=== PATIENT | female | born 1935 | race African-American/Black ===

== ENCOUNTER 2017-01-10 11:53 | Observation (INO) | payer MEDICARE, BC ==
--- NOTE | ~2017-01-10 | DS ---
Discharge Summary [facility] [address] [place]. [address] NAME: MEET DURON : 37 STATUS : DIS Bibiana PAT#: [id number] AGE: 81 ADM/REG DATE : 01/10/17 MR#: [id number] REPORT SERV DATE: 01/13/17 DICTATED BY: JAKE LOREDO DATE: 01/12/17 REPORT STATUS : Draft TRANSCRIBED BY: MODRobert DATE: 01/12/17 ADMISSION DATE: 01/10/2017 DISCHARGE DATE: 01/12/2017 REASON FOR ADMISSION: This is an 81-year-old female with a history of degenerative joint disease and osteoarthritis who had been admitted with intractable right hip and knee pain and generalized debility with a chronic history of chronic progressive multiple sclerosis. DISCHARGE DIAGNOSES: 1. Right hip and right knee pain secondary to degenerative joint disease. 2. Debility. 3. Chronic multiple sclerosis. 4. Hypertension. 5. Anxiety and depression. 6. Prediabetic with A1c of 5.8. 7. Nausea, possible gastroparesis. HOSPITAL COURSE: Right hip and right knee pain. On admission, the patient had reportedly had intractable right hip and knee pain at home and was bedbound due to her MS and joint pain, and family was requesting that we admit her and have PT see her and to see if we can get her in for inpatient rehab. She was seen by Physical Therapy who had recommended assisted or inpatient rehab and was also seen by Orthopedic Surgery. She had had an x-ray of right hip and right knee. The hip x-ray had stated moderate of degenerative changes of the right hip, and the right knee x-ray had suggested severe degenerative changes of the right knee with narrowing of both medial and lateral joint compartments. She was seen by Dr. Dusty Patterson from Ortho Surgery who had stated that she had right knee osteoarthritis and right hip osteoarthritis pain and both felt that she would be treated as an outpatient, no need for acute surgical intervention, and would follow up with her as an outpatient. Case Management attempted inpatient rehab placement; however, both [facility] and [facility] felt that the patient was at baseline function level and that her debility was chronically related not to an acute process that was amenable to inpatient rehab. Therefore, she was denied by both, and since she did not have an inpatient admitting diagnosis, the alternate plan was to set her up with home health, hospital bed, bedside commode, and home health PT and TECHNOLOGY RECRUITER visits. I should also mention that the patient had complaints of nausea and fullness that were consistent with possible gastroparesis and she does have a history of prediabetes and MS, I started her on Reglan while she was here at the hospital. She showed improvement with symptoms from both Reglan and Carafate, which I had started her on. She will be continued with that at discharge. DISCHARGE CONDITION: Stable. DISCHARGE MEDICATIONS: 1. Zocor 20 mg p.o. at bedtime. 2. Tenormin 100 mg p.o. daily. 3. Neurontin 600 mg p.o. q.a.m. and q.p.m. and 900 mg at bedtime. 4. Lexapro 20 mg p.o. daily. Discharge Summary [address] [address] NAME: MEET DURON : 37 STATUS : DIS Bibiana PAT#: [id number] AGE: 81 ADM/REG DATE : 01/10/17 MR#: [id number] REPORT SERV DATE: 01/13/17 DICTATED BY: JAKE LOREDO DATE: 01/12/17 REPORT STATUS : Draft TRANSCRIBED BY: JAQUAN DATE: 01/12/17 5. Xanax 0.5 mg p.o. daily. 6. Wellbutrin 150 mg p.o. daily. 7. Caltrate 600 plus D one tablet daily. 8. Multivitamin one tablet daily. 9. Biotin 5 mg p.o. daily. 10.Tylenol p.r.n. 11.Benadryl p.r.n. 12.Nanci p.r.n. 13.Reglan 5 mg p.o. a.c. and bedtime. 14.Carafate 1 g a.c. and bedtime. 15.Hydrocodone 5/325 one to two tabs p.o. q.4 hours p.r.n. DISCHARGE PLAN: The patient is discharged home with hospital bed, home health services for RN, PT, and TECHNOLOGY RECRUITER visits, and bedside commode. She will follow up with her primary care, Dr. Blu Price, in one to two weeks. TDR/MODL Jake Loredo APN / [id number] CC: Ruth Shipley M.D.
--- NOTE | ~2017-01-10 | CN ---
Consultation Report [facility] [address] [place]. [address] NAME: MEET DURON : 37 STATUS : ADM iBbiana PAT#: [id number] AGE: 81 ADM/REG DATE : 01/10/17 MR#: [id number] REPORT SERV DATE: 01/11/17 DICTATED BY: DUSTY BROWER DATE: 01/11/17 REPORT STATUS : Draft TRANSCRIBED BY: MODL DATE: 01/11/17 CONSULTATION DATE OF CONSULTATION: 01/11/2017 CHIEF COMPLAINT: Right hip pain and right knee pain. HISTORY: The patient is an 81-year-old female with a longstanding history of arthritis. She has had a previous left total hip and a left total knee in the past. She says both of those are about 20 years old. She has also had a revision total knee on the left side. She has complained of right hip pain recently as well as right knee pain. She said they are both better today, but the right hip was bad enough that she came to the emergency department. She has multiple sclerosis as well and her strength is decreased due to that. She said she has had injections in her knees previously and knows she has arthritis in her right knee and hip. PAST MEDICAL HISTORY: Hypertension, multiple sclerosis, gout, constipation, anxiety, depression, neuropathy, hyperlipidemia, bladder cancer, irritable bowel, and diabetes type 2. PAST SURGICAL HISTORY: Left total knee x2, last one was in 2006; left total hip which she says was about 20 years ago; hysterectomy; appendectomy; cholecystectomy; and colonoscopy. SOCIAL HISTORY: She lives with her daughter. She is retired. Does not smoke or drink. FAMILY HISTORY: Noncontributory. HOME MEDICATIONS: Zocor, atenolol, Neurontin, Tylenol, Biotin, calcium, Benadryl, Lexapro, and Xanax. PHYSICAL EXAMINATION: GENERAL: Well-developed, well-nourished female, in no acute distress. HEENT: Normocephalic, atraumatic. RESPIRATORY: Nonlabored respirations. Equal chest rise bilaterally. EXTREMITIES: She has mild swelling in her lower extremities. No cyanosis or clubbing. MUSCULOSKELETAL: Her right knee has swelling, she is tender to palpation. Range of motion causes pain. She has significant crepitus with range of motion. Tender to palpation in medial and lateral joint lines. Right hip causes some mild pain with log roll. Flexion causes pain. No tenderness to palpation of her right hip. Her left knee, has an incision over her left knee. She is tender to palpation around medial and lateral joint lines. NEURO: Alert and oriented x3. PSYCH: Appropriate mood and affect. SKIN: No rashes or lesions. Incisions over the left hip and left knee. Consultation Report [facility] [address] [place]. [address] NAME: MEET DURON : 37 STATUS : ADM Bibiana PAT#: [id number] AGE: 81 ADM/REG DATE : 01/10/17 MR#: [id number] REPORT SERV DATE: 01/11/17 DICTATED BY: DUSTY BROWER DATE: 01/11/17 REPORT STATUS : Draft TRANSCRIBED BY: JAQUAN DATE: 01/11/17 IMAGING: X-ray, AP pelvis, she has a left total hip arthroplasty, good position, no evidence of loosening or failure. The right hip shows degenerative arthritis. The right knee x-rays show significant tricompartmental arthritis, bone on bone in every compartment. ASSESSMENT AND PLAN: Right knee osteoarthritis, right hip osteoarthritis with pain in both. She says that these are better today. Can be treated as an outpatient. There is no need for acute surgical intervention. I am not sure how much even injections would help her right knee due to the significance of the arthritis. I think they will give her very short relief. We will follow her up as an outpatient. KRISTOFER/JAQUAN Dusty Brower MD / [id number] CC: Ruth Shipley M.D.
--- NOTE | ~2017-01-10 | HP ---
History And Physical [address] [place]. [address] NAME: MEET DURON : 37 STATUS : ADM Bibiana PAT#: [id number] AGE: 81 ADM/REG DATE : 01/10/17 MR#: [id number] REPORT SERV DATE: 01/11/17 DICTATED BY: JAKE LOREDO DATE: 01/10/17 REPORT STATUS : Draft TRANSCRIBED BY: MODRobert DATE: 01/10/17 DATE OF ADMISSION: 01/10/2017 Previous orthopedic surgeon is Dr. Villatoro from [place] and neurologist is Dr. Soto. CHIEF COMPLAINT: Right hip and right knee pain. HISTORY OF PRESENT ILLNESS: This is an 81-year-old female with a history of degenerative joint disease and osteoarthritis with previous history of a left total hip arthroplasty and a left total knee arthroplasty and also with a history of multiple sclerosis, who comes in with a complaint of progressive right hip and right knee pain. Last night, the pain became intolerable, it was intractable, and the patient was unable to sleep secondary to pain. The patient is largely bed-bound and debilitated secondary to her MS plus her osteoarthritis and degenerative joint disease. Her MS has progressed in recent years and her upper body strength and overall general strength is much decreased. She has had no recent falls and no trauma to the right hip or right knee. She received an x-ray of the hip and pelvis in the emergency room and the x-ray was negative for fracture in the right hip and showed the left hip prosthesis intact and just showed moderate degenerative changes in the right hip. PAST MEDICAL HISTORY: 1. Hypertension. 2. Multiple sclerosis. 3. Gout. 4. Constipation. 5. Anxiety. 6. Depression. 7. Neuropathy. 8. Hyperlipidemia. 9. Bladder cancer. 10.Irritable bowel syndrome. 11.Diet-controlled diabetes. PAST SURGICAL HISTORY: 1. Hysterectomy. 2. Appendectomy. 3. Left total knee arthroplasty x2 in 2006. 4. Left total hip arthroplasty. 5. Colonoscopy. 6. Cholecystectomy. SOCIAL HISTORY: The patient lives with daughter. Retired. No smoking or alcohol. FAMILY HISTORY: Diabetes. REVIEW OF SYSTEMS: A 14-point system reviewed and negative except as previously mentioned. History And Physical [address] [address] NAME: MEET DURON : 37 STATUS : ADM Bibiana PAT#: [id number] AGE: 81 ADM/REG DATE : 01/10/17 MR#: [id number] REPORT SERV DATE: 01/11/17 DICTATED BY: JAKE LOREDO DATE: 01/10/17 REPORT STATUS : Draft TRANSCRIBED BY: JAQUAN DATE: 01/10/17 HOME MEDICATIONS: Zocor, atenolol, Neurontin, Tylenol, biotin, calcium plus vitamin D, Benadryl, Lexapro, and Xanax. ALLERGIES: NO KNOWN ALLERGIES. PHYSICAL EXAMINATION: VITAL SIGNS: Blood pressure 167/79, heart rate 65, respirations 18, and O2 sat 96% on room air. GENERAL: On exam, the patient is generally awake, in no apparent distress, cooperative. Currently, denies pain. NEUROLOGIC: Alert and oriented x3. Cranial nerves II through XII grossly intact. LUNGS: Clear to auscultation bilaterally. CARDIOVASCULAR: Regular rate and rhythm. No murmur. ABDOMEN: Soft and nontender. Active bowel sounds. EXTREMITIES: No edema. MUSCULOSKELETAL: Right knee, just slightly puffy. Right hip, tender to palpation and pain with range of motion. No edema or bruising seen to right hip. LABORATORY DATA: Sodium 140, potassium 4.7, chloride 108, CO2 of 28, BUN 16, creatinine 1.01, glucose 122, calcium 9.3, albumin 3.2, total bilirubin 0.6, alk phos 138, ALT 32, AST 22, and lipase 111. CBC: White blood cell count 7.8, hemoglobin 12.6, hematocrit 38.5, and platelets 194. Urinalysis within normal limits, no abnormalities. Pelvis x-ray, moderate degenerative changes in the right hip, intact left prosthesis. ASSESSMENT AND PLAN: 1. Right hip and knee pain. We will order analgesics p.r.n., hydrocodone, and Tylenol. 2. We will also consult Ortho Surgery and order an x-ray of the right knee. We will also order PT and OT eval and treat and have leather case finisher begin working on rehab placement for the patient. 3. Multiple sclerosis. The patient has had multiple sclerosis since about 1993, in recent years has been progressing. She is mostly bed-bound and debilitated. Chronic progressive weakness, especially in her upper body. Will need rehab and placement. 4. Hypertension, resume home atenolol. 5. Anxiety and depression, resume home Xanax and Lexapro. TDR/MERVATL Jake Loredo APN History And Physical [address] [address] NAME: MEET DURON : 37 STATUS : ADM Bibiana PAT#: [id number] AGE: 81 ADM/REG DATE : 01/10/17 MR#: [id number] REPORT SERV DATE: 01/11/17 DICTATED BY: JAKE LOREDO DATE: 01/10/17 REPORT STATUS : Draft TRANSCRIBED BY: JAQUAN DATE: 01/10/17 / [id number] CC: Ruth Shipley M.D.
[~2017-01-10 11:53] MED LIST: ATEN100 PO; LEXAPRO20 PO; MAXZIDE PO; NEUR300 PO; SYSTANE OP; X5 PO; Z300 PO; ZOCOR20 PO
[2017-01-10 14:12] LABS: BASOPHILS 0.5 %; BASOPHILS ABSOLUTE 0.04 10/3/uL (0.0-0.16); EOSINOPHILS 1.9 %; EOSINOPHILS ABSOLUTE 0.15 10/3/uL (0.0-0.53); HEMATOCRIT 38.5 % (36.0-48.0); HEMOGLOBIN 12.6 g/dL (12.0-16.0); IMMATURE GRANULOCYTES 0.3 %; IMMATURE GRANULOCYTES ABSOLUTE 0.02 10/3/uL (0.0-0.11); LYMPHOCYTES 21.5 %; LYMPHOCYTES ABSOLUTE 1.67 10/3/uL (0.67-4.30); MEAN CORPUS HGB CONC 32.7 g/dL (32.0-36.0); MEAN CORPUSCULAR VOLUME 88.5 fL (80-100); MEAN PLATELET VOLUME 10.6 fL (9.2-13.0); MONOCYTES 7.7 %; NEUTROPHILS 68.1 %; PLATELET COUNT 194 10/3/uL (150-400); RBC DISTRIBUTION WIDTH 14.5 % (12.0-16.0); RED CELL COUNT 4.35 10/6/uL (4.0-5.6); WHITE BLOOD CELLS 7.8 10/3/uL (4.5-10.5)
[2017-01-10 14:13] LABS: MANUAL DIFF NO %
[2017-01-10 14:27] LABS: A/G RATIO 0.7 (0.7-1.9); ALBUMIN 3.2 G/DL (3.5-5.0); CALCIUM, SERUM 9.3 MG/DL (8.5-10.4); CHLORIDE, SERUM 108 MMOL/L (96-112); CO2 (CARBON DIOXIDE) 28 MMOL/L (24-34); CREATININE 1.01 MG/DL (0.55-1.02); GFR AFRICAN AMERICAN 61 ML/MIN (>=60); GFR NON AFRICAN AMERICAN 53 ML/MIN (>=60); GLOBULIN 4.3 G/DL (2.5-4.1); POTASSIUM, SERUM 4.7 MMOL/L (3.5-5.3); SGOT(AST) 22 U/L (5-40); SGPT(ALT) 32 U/L (5-65); SODIUM, SERUM 140 MMOL/L (135-148); TOTAL BILIRUBIN 0.6 MG/DL (0-1.2); TOTAL PROTEIN 7.5 G/DL (6.0-8.5)
[2017-01-10 14:28] LABS: ALKALINE PHOSPHATASE 138 U/L (45-117); BUN (BLOOD UREA NITROGEN) 16 MG/DL (6-23); GLUCOSE, SERUM 122 MG/DL (60-99)
[2017-01-10 14:33] LABS: EOSINOPHILS 2 %; EOSINOPHILS ABSOLUTE (CALC) 0.16 10/3/uL (0.0-0.53); ER DIFF TAT 0 Hrs 25 Mins; LYMPHOCYTES 20 %; LYMPHOCYTES ABSOLUTE (CALC) 1.56 10/3/uL (0.67-4.30); MONOCYTES 9 %; NEUTROPHILS ABSOLUTE (CALC) 5.38 10/3/uL (2.02-8.40); PLATELET ESTIMATE ADQ (ADEQUATE); RBC MORPHOLOGY NORM (NORMAL); SEGMENTED NEUTROPHIL (0) 69 %; TOTAL NUCLEATED CELLS 100
[2017-01-10 15:25] LABS: ASCORBIC ACID (UR NOT ORDER) NEG (NEG); BILIRUBIN, URINE NEGATIVE (NEG); ER URINALYSIS TAT 0 Hrs 10 Mins; KETONE, URINE NEGATIVE (NEG); LEUKOCYTE ESTERASE(NOT OR NEG (NEG); NITRITE (URINE) NEG (NEG); WBC (NOT ORDERED) (RFLEX) < 1 (0-5)
[2017-01-10] MEDS ORDERED: ATEN100 PO (16:37)
[2017-01-10] MEDS ORDERED: ZOCOR20 PO (16:37)
[2017-01-10] MEDS ORDERED: NEUR300 PO (16:38)
[2017-01-10] MEDS ORDERED: NEUR600 PO (16:38)
[2017-01-10] MEDS ORDERED: LEXAPRO20 PO (16:42)
[2017-01-10] MEDS ORDERED: SYSTANE OPH (16:43)
[2017-01-10] MEDS ORDERED: WELLXL150 PO (16:43)
[2017-01-10] MEDS ORDERED: X5 PO (16:43)
[2017-01-10] MEDS ORDERED: BIOTIN5 MG PO (16:44)
[2017-01-10] MEDS ORDERED: CENTRUM PO (16:44)
[2017-01-10] MEDS ORDERED: CALTRA600D PO (16:44)
[2017-01-10] MEDS ORDERED: ACET500CAP PO (16:44)
[2017-01-10] MEDS ORDERED: BEN25 PO (16:45)
[2017-01-10] MEDS ORDERED: ALLEGRA180 PO (16:45)
[2017-01-11 07:11] LABS: BASOPHILS 0.7 %; BASOPHILS ABSOLUTE 0.05 10/3/uL (0.0-0.16); EOSINOPHILS 2.2 %; EOSINOPHILS ABSOLUTE 0.16 10/3/uL (0.0-0.53); HEMATOCRIT 35.1 % (36.0-48.0); HEMOGLOBIN 11.5 g/dL (12.0-16.0); IMMATURE GRANULOCYTES 0.3 %; IMMATURE GRANULOCYTES ABSOLUTE 0.02 10/3/uL (0.0-0.11); LYMPHOCYTES 32.4 %; LYMPHOCYTES ABSOLUTE 2.36 10/3/uL (0.67-4.30); MANUAL DIFF NO %; MEAN CORPUS HGB CONC 32.8 g/dL (32.0-36.0); MEAN CORPUSCULAR HEMOGLOB 28.5 pg (26.0-34.0); MEAN CORPUSCULAR VOLUME 87.1 fL (80-100); MEAN PLATELET VOLUME 10.8 fL (9.2-13.0); MONOCYTES 7.7 %; MONOCYTES ABSOLUTE 0.56 10/3/uL (0.21-1.20); NEUTROPHILS 56.7 %; NEUTROPHILS ABSOLUTE 4.13 10/3/uL (2.02-8.40); PLATELET COUNT 193 10/3/uL (150-400); RBC DISTRIBUTION WIDTH 14.7 % (12.0-16.0); RED CELL COUNT 4.03 10/6/uL (4.0-5.6); WHITE BLOOD CELLS 7.3 10/3/uL (4.5-10.5)
[2017-01-11 07:14] LABS: BUN (BLOOD UREA NITROGEN) 17 MG/DL (6-23); CALCIUM, SERUM 8.7 MG/DL (8.5-10.4); CHLORIDE, SERUM 106 MMOL/L (96-112); CO2 (CARBON DIOXIDE) 28 MMOL/L (24-34); CREATININE 1.07 MG/DL (0.55-1.02); GFR AFRICAN AMERICAN 57 ML/MIN (>=60); GFR NON AFRICAN AMERICAN 49 ML/MIN (>=60); GLUCOSE, SERUM 114 MG/DL (60-99); POTASSIUM, SERUM 3.8 MMOL/L (3.5-5.3); SODIUM, SERUM 140 MMOL/L (135-148)
[2017-01-12] MEDS ORDERED: REG5 PO (14:06)
[2017-01-12] MEDS ORDERED: SUCR PO (14:07)
[2017-01-12] MEDS ORDERED: NORCO1 TA1 PO (14:09)
== END 2017-01-12 16:12 | disposition home or self-care (01) ==
LOC: ER 11:53 → 1SO 18:05
PROVIDERS: Emergency Medicine; Internal Medicine
DX: M16.11 Unilateral primary osteoarthritis, right hip (principal); M17.11 Unilateral primary osteoarthritis, right knee; R53.81 Other malaise; G35 Multiple sclerosis; I10 Essential (primary) hypertension; F41.9 Anxiety disorder, unspecified; F32.9 Major depressive disorder, single episode, unspecified; R73.03 Prediabetes; R11.0 Nausea; M10.9 Gout, unspecified; K59.00 Constipation, unspecified; E78.5 Hyperlipidemia, unspecified; K58.9 Irritable bowel syndrome, unspecified; E11.40 Type 2 diabetes mellitus with diabetic neuropathy, unspecified; Z90.49 Acquired absence of other specified parts of digestive tract; Z90.710 Acquired absence of both cervix and uterus; Z98.890 Other specified postprocedural states; Z79.899 Other long term (current) drug therapy
CPT/HCPCS: 71010; 72170; 73560-RT; 80048; 80053; 81001; 83036; 83690; 83735; 85025; 96372; 97162-GP; 97166-GO; 99285; A9270-GY; G0378; G8978-CM-GP; G8979-CL-GP; G8987-CL-GO; G8988-CK-GO